=== PATIENT | female | born 1980 ===

== ENCOUNTER 2021-08-07 04:39 | Inpatient (IN) | payer SELFPAY ==
[2021-08-07] MEDS ORDERED: LACTATED RINGERS 1,000 ML ONE (07:03)
--- NOTE | 2021-08-07 07:06 | Ultrasound Report ---
US OB follow up INDICATION / CLINICAL INFORMATION: AVIVA, EFW COMPARISON: None available. TECHNIQUE: Using a transcutaneous probe, multiple grayscale, color Doppler, and spectral Doppler imag es of the uterus and fetus were captured and stored. FINDINGS: A single cephalic fetus with heart rate of 134 bpm is demonstrated. The amniotic fluid is adequate and a mild with amniotic fluid index within normal limits measuring 11 .6 cm. Biparietal Diameter = 9.7 cm = 39, 5 weeks, days Head Circumference = 35.1 cm = 40, 6 weeks, days Abdominal Circumference = 33.8 cm = 37, 5 weeks, days Femur Length = 7.2 cm = 36, 4 weeks, days Average Ultrasound Age (AUA) = 38, 5 weeks, days. EDC 08/16/2021. The clinical estimated gestational age based on LMP of 10/26/2020 is 40 weeks 5 days. Estimated weight = 3388 g; growth percentile 23%.. IMPRESSION: 1. Single living fetus with estimated gestational age of 38 weeks 5 days, estimated weight of 3 388 g. Normal AVIVA. Signer Name: Da Barr II, MD Signed: 08/07/2021 7:02 AM Workstation Name: [id number]
[2021-08-07] MEDS ORDERED: miSOPROStol 200 MCG TAB PR PRN (07:35)
[2021-08-07] MEDS ORDERED: LOPERAMIDE 2 MG CAP PO PRN (07:35)
[2021-08-07 07:57] LABS: Hematocrit 40.5 % (30.3-42.9); Hemoglobin 13.7 gm/dl (10.1-14.3); Mean Corpuscular HGB Conc 34 % (30-34); Mean Corpuscular Volume 93 fl (79-97); Platelet Count 202 K/mm3 (140-440); Red Blood Count 4.35 M/mm3 (3.65-5.03); Red Cell Distribution Width 14.5 % (13.2-15.2)
[2021-08-07] MEDS ORDERED: ePHEDrine SULFATE 50 MG/1 ML INJ IV PRN ×2 (08:00→16:00)
[2021-08-07] MEDS ORDERED: OXYTOCIN DRIP 30 UNITS/500 ML BAG IV SCH ×3 (08:00→16:00)
[2021-08-07] MEDS ORDERED: CARBOPROST TROMETHAMINE 250 MCG/1 ML INJ IM PRN (08:00)
[2021-08-07] MEDS ORDERED: LIDOCAINE (2%) 20 MG/1 ML VIAL 20 ML MDV INFILTRATI SCH (08:00)
[2021-08-07 08:10] LABS: Amphetamine Screen,Urine Negative; Benzodiazepines Screen,Urine Negative; Cannabinoid Screen,Urine Negative; Cocaine Screen,Urine Negative; Methadone Screen,Urine Negative; Opiate Screen,Urine Negative
[2021-08-07 08:12] LABS: Bacteria,Urine 2+ /HPF (Negative); Bilirubin,Urine NEG (Negative); Blood,Urine MOD (Negative); Color,Urine Yellow (Yellow); Mucus,Urine 1+ /HPF; Protein,Urine <15 mg/dL mg/dL (Negative); Urobilinogen,Urine < 2.0 mg/dL (<2.0)
[2021-08-07] MEDS ORDERED: ACETAMINOPHEN 325 MG TAB PO PRN (08:30)
[2021-08-07] MEDS ORDERED: fentaNYL 100 MCG/2 ML INJ IV PRN (08:30)
[2021-08-07] MEDS ORDERED: TERBUTALINE 1 MG/1 ML INJ SUB-Q PRN (08:30)
[2021-08-07] MEDS ORDERED: MINERAL OIL 30 ML ORAL LIQD PO PRN (08:30)
[2021-08-07] MEDS ORDERED: BUTORPHANOL 2 MG/1 ML INJ IV PRN (08:30)
--- NOTE | 2021-08-07 08:35 | History and Physical Report ---
History of Present Illness Date of examination: 08/07/21 Date of admission: 08/07/2021 Chief complaint: Contractions History of present illness: 41-year-old at 40-5/7 weeks gestation presents to OB triage reporting contractions. The contractions are every 2 to 4 minutes, and they are not necessarily regular. There is no leaking of fluid. There is good movement. There is some mild spotting. In OB triage, cervical exam was 2 cm dilated. OB ultrasound limited was normal. As this patient is past her due date, carries the diagnosis of advanced maternal age, and is clearly greater than 39 weeks gestation, induction of labor was recommended. The patient is admitted to labor and delivery for induction of labor. Past History Past Medical History: no pertinent history Past Surgical History: no surgical history Family/Genetic History: hypertension Social history: no significant social history - Obstetrical History Expected Date of Delivery: 08/02/21 Actual Gestation: 40 Week(s) 5 Day(s) : 2 Para: 1 Hx # Term Pregnancies: 1 Medications and Allergies Allergies Allergy/AdvReac Type Severity Reaction Status Date / Time No Known Allergies Allergy Unverified 08/07/21 05:21 Home Medications Medication Instructions Recorded Confirmed Last Taken Type Vitamin 1 tab PO DAILY 08/07/21 08/07/21 07/31/21 History Active Meds: Active Medications Acetaminophen (Acetaminophen 325 Mg Tab) 650 mg PO Q4H PRN PRN Reason: Pain, Mild (1-3) Butorphanol Tartrate (Butorphanol 2 Mg/1 Ml Inj) 1 mg IV Q2H PRN PRN Reason: Pain, Moderate(4-6) LABOR PAIN Carboprost Tromethamine (Carboprost Tromethamine 250 Mcg/1 Ml Inj) 250 mcg IM ONCE PRN PRN Reason: Uterine Bleeding Ephedrine Sulfate (Ephedrine Sulfate 50 Mg/1 Ml Inj) 10 mg IV Q2M PRN PRN Reason: Hypotension Fentanyl (Fentanyl 100 Mcg/2 Ml Inj) 100 mcg IV Q2H PRN PRN Reason: Pain,Severe (7-10) LABOR PAIN Oxytocin/Sodium Chloride (Pitocin/Ns 30 Unit/500ml) 30 units in 500 mls @ 2 mls/hr IV TITR KALEN; Protocol Lactated Ringer's (Lactated Ringers) 1,000 mls @ 125 mls/hr IV DIRECT KALEN Oxytocin/Sodium Chloride (Pitocin/Ns 30 Unit/500ml) 30 units in 500 mls @ 40 mls/hr IV TITR KALEN; Protocol Lidocaine (Lidocaine (2%) 20 Mg/1 Ml Vial 20 Ml Mdv) 20 ml INFILTRATI ONCE@0800 [facility] Stop: 08/08/21 07:59 Loperamide HCl (Loperamide 2 Mg Cap) 2 mg PO ONCE PRN PRN Reason: give with Hemabate Methylergonovine Maleate (Methylergonovine Maleate 0.2 Mg/Ml Vial) 0.2 mg IM ONCE PRN PRN Reason: Uterine Bleeding Mineral Oil (Mineral Oil 30 Ml Oral Liqd) 30 ml PO QHS PRN PRN Reason: Constipation Misoprostol (Misoprostol 200 Mcg Tab) 800 mcg ND ONCE PRN PRN Reason: Uterine Bleeding Misoprostol (Misoprostol 25 Mcg Tab) 25 mcg PO Q4H [facility] Stop: 08/07/21 08:01 Oxytocin (Oxytocin 10 Unit/1 Ml Inj) 10 unit IM ONCE PRN PRN Reason: Uterine Bleeding Terbutaline Sulfate (Terbutaline 1 Mg/1 Ml Inj) 0.25 mg SUB-Q ONCE PRN PRN Reason: Hyperstimulation/Hypertonicity Review of Systems All systems: negative - Vital Signs Vital signs: Vital Signs Pulse Pulse Ox 99 H 99 08/07/21 05:03 08/07/21 05:03 Temp Pulse Resp BP Pulse Ox 97.9 F 88 136/76 96 08/07/21 05:05 08/07/21 08:31 08/07/21 08:02 08/07/21 08:31 - Physical Exam Breasts: Positive: normal Cardiovascular: Regular rate Lungs: Positive: Normal air movement Abdomen: Positive: normal appearance, soft, normal bowel sounds Genitourinary (Female): Positive: normal external genitalia, normal perenium Vulva: both: normal Vagina: Positive: normal moisture Uterus: Positive: enlarged Adnexa: both: normal Anus/Rectum: Positive: normal perianal skin Extremities: Positive: normal Deep Tendon Reflex Grade: Normal +2 - Obstetrical FHR: category 1 Uterine Contraction Monitor Mode: External Cervical Dilatation: 2 Cervical Effacement Percentage: 60 station: -2 Uterine Contraction Frequency (min): 4 Uterine Contraction Pattern: Irregular Results Result Diagrams: 08/07/21 07:15 Abnormal lab results 08/07/21 Range/Units Unknown U Epithel Cells (Auto) 32.0 H (0-13.0) /HPF All other labs normal. Ultrasound: report reviewed, image reviewed (OB ultrasound Limited= SLIUP. Vertex. Fundal placenta. EFW= 3388 g (23rd %-ile). AVIVA= 11.6 cm.) Assessment and Plan - Patient Problems (1) 40 weeks gestation of Current Visit: Yes Status: Acute Plan to address problem: care is up-to-date. 1 hour glucose tolerance test is normal. She is GBS negative. (2) Postmaturity , 40-42 weeks gestation Current Visit: Yes Status: Acute Plan to address problem: The patient is past her due date. Induction of labor is recommended. (3) Encounter for induction of labor Current Visit: Yes Status: Acute Plan to address problem: Ripen cervix with oral Cytotec. Start Pitocin and artificially rupture membranes after 4 cm dilation and when possible. (4) Obesity affecting in third trimester, antepartum Current Visit: Yes Status: Acute Plan to address problem: BMI 33.8. Advise diet and exercise . (5) AMA (advanced maternal age) multigravida 35+ Current Visit: Yes Status: Acute Plan to address problem: The patient was seen by maternal- medicine.
[2021-08-07] MEDS ORDERED: OXYTOCIN 10 UNIT/1 ML INJ IM PRN (09:00)
[2021-08-07] MEDS ORDERED: METHYLERGONOVINE MALEATE 0.2 MG/ML VIAL IM PRN (09:00)
[2021-08-07] MEDS ORDERED: miSOPROStol 25 MCG TAB PO SCH (10:00)
[2021-08-07] MEDS: LACTATED RINGERS 1,000 ML IV SCH ×3 (11:09→20:10)
[2021-08-07] MEDS ORDERED: MINERAL OIL 30 ML ORAL LIQD ONE ×2 (14:45→21:24)
--- NOTE | 2021-08-07 14:51 | Anesthesia Consultation ---
Anesthesia Consult and Med Hx Date of service: 08/07/21 - Airway Anesthetic Teeth Evaluation: Good ROM Head & Neck: Adequate Mental/Hyoid Distance: Adequate Mallampati Class: Class II Intubation Access Assessment: Good - Pulmonary Exam CTA: Yes - Cardiac Exam Cardiac Exam: RRR - Pre-Operative Health Status ASA Pre-Surgery Classification: ASA2 Proposed Anesthetic Plan: Epidural - Pulmonary Hx Asthma: No COPD: No Hx Pneumonia: No - Cardiovascular System Hx Hypertension: No - Central Nervous System Hx Seizures: No Hx Psychiatric Problems: No - Endocrine Hx Renal Disease: No Hx End Stage Renal Disease: No Hx Hypothyroidism: No Hx Hyperthyroidism: No - Hematic Hx Anemia: No Hx Sickle Cell Disease: No - Other Systems Hx Alcohol Use: No
[2021-08-07] MEDS ORDERED: fentaNYL-BUPIV 2 MCG/ML-0.125% 200 MCG/100 ML BAG EPIDURAL SCH (15:00)
[2021-08-07] MEDS ORDERED: NALOXONE 0.4 MG/1 ML INJ IV PRN (15:00)
--- NOTE | 2021-08-07 15:46 | Progress Note ---
Labor Epidural - Labor Epidural Start Time: 15:22 Stop Time: 15:26 Performed by:: ANA CHENG Procedure: Patient is requesting epidural for labor and pain. H&P, labs were reviewed. Patient IDed, all questions and concerns were answered, and consent was signed. Timeout was performed at bedside. Patient in sitting position. Sterile prep and drape was performed. 3ml of 1% lidocaine skin wheal at L[3]- L [4]. 17- gauge Tuohy epidural needle was advanced to loss of resistance with air technique cm. Negative CSF negative blood. Epidural catheter advanced to [] centimeters. [negative] Aspiration [negative] test dose. Sterile dressing applied. Patient tolerated procedure.
--- NOTE | 2021-08-07 16:39 | Event Note ---
Date: 08/07/21 (899) AMA presented in labor Cat 1 tracing, cx Q1-2min w/o meds, Ve -3 posterior. Desires epidural. GBS neg.
--- NOTE | 2021-08-07 18:27 | Event Note ---
Date: 08/07/21 (1710) Evalutated patient at 1710.She has been epiduralized, currently with infante cath, IUPC and pitocin at 4mu. cat 1 tracing.
--- NOTE | 2021-08-07 19:25 | Event Note ---
Date: 08/07/21 pt evaluated and comfortable with epidural. FHR category I, inadequate ctx. Need to increase pitocin per protocol. Pelvic with anterior cervix swollen. Pt in high fowlers position. Expect
--- NOTE | 2021-08-07 23:00 | Event Note ---
Date: 08/07/21 pt complete with O-P presentation, placed in right lateral position, head at 0 station. IV pitocin at 4mu/min still inadequate but frequent contractions. Pt remains with epidural and the dose halfed. Pt notified of my exam and will await vaginal delivery.
[2021-08-08] MEDS ORDERED: LANOLIN/ZINC/DIMETHICONE (LANSINOH) 7 GM TP PRN (00:57)
[2021-08-08] MEDS ORDERED: BENZOCAINE/MENTHOL 20/0.5% TOP SPRAY 56 GM TP PRN (00:57)
[2021-08-08] MEDS ORDERED: ACETAMINOPHEN 325 MG TAB PO PRN (00:57)
[2021-08-08] MEDS ORDERED: WITCH HAZEL/ GLYCERIN PAD TP PRN (00:57)
[2021-08-08] MEDS ORDERED: HYDROcodone/ACETAMINOPHEN 5-325 MG TAB PO PRN (00:57)
[2021-08-08] MEDS ORDERED: MAGNESIUM HYDROXIDE (MOM) ORAL LIQD UDC PO PRN (00:57)
--- NOTE | 2021-08-08 01:08 | Procedure Note ---
OB Delivery Note - Delivery Date of Delivery: 08/08/21 Surgeon: MARGARITO GRAHAM Computer [employer] Instructor: PAUL CORREA Estimated blood loss: other (350 cc) - Vaginal Delivery presentation: vertex Delivery position: OA Intrapartum events: other(please specify) (AMA) Delivery induction: misoprostol Delivery augmentation: rupture of membranes, pitocin Delivery monitor: external FHT, external uterine, internal FHT, internal uterine Route of delivery: Delivery placenta: spontaneous Delivery cord: nuchal cord (x2), 3 umbilical vessels Episiotomy: none Delivery laceration: 1st degree Delivery repair: vicryl Anesthesia: epidural Delivery comments: Patient achieved complete cervical dilation. Fetus was occiput anterior position based on bedside sonogram performed by me. Patient felt the urge to push. After 2 pushes with contractions, the patient produced the head. Nuchal cord x2 were noted and were easily reduced manually. The remainder of the infant was delivered atraumatically. Mouth and nose were bulb suctioned. The cord was clamped and cut. Cord blood was obtained. The placenta was spontaneously expelled. First-degree perineal laceration was repaired with 2-0 Vicryl in a running locked fashion to produce excellent hemostasis. There were no instruments, laparotomy sponges, or 4 x 4's left within the patient's vagina. This was confirmed with a vaginal sweep. The patient tolerated the procedure well. - A at 1 minute: 8 at 5 minutes: 9 Gender: Male
[2021-08-08] MEDS ORDERED: MINERAL OIL 30 ML ORAL LIQD PO ONE (01:28)
[2021-08-08] MEDS: IBUPROFEN 800 MG TAB PO SCH ×3 (03:47→23:31)
[2021-08-08] MEDS: DOCUSATE SODIUM 100 MG CAP PO SCH ×2 (10:41→21:44)
[2021-08-08] MEDS ORDERED: FLUCONAZOLE 100 MG TAB PO SCH (13:00)
[2021-08-08 17:42] LABS: Hematocrit 40.7 % (30.3-42.9); Hemoglobin 13.3 gm/dl (10.1-14.3); Mean Corpuscular HGB Conc 33 % (30-34); Mean Corpuscular Volume 93 fl (79-97); Platelet Count 176 K/mm3 (140-440); Red Blood Count 4.36 M/mm3 (3.65-5.03); Red Cell Distribution Width 14.8 % (13.2-15.2)
[2021-08-09] MEDS: IBUPROFEN 800 MG TAB PO SCH (05:48)
--- NOTE | 2021-08-09 09:11 | Progress Note ---
Assessment and Plan A: PPD # 1 - stable P: Discharge home today Discharge instructions given Subjective - Subjective Date of service: 08/09/21 Principal diagnosis: PPD # 1 Patient reports: appetite normal [place]: doing well Objective - Vital Signs Latest vital signs: Vital Signs Temp Pulse Resp BP Pulse Ox Pulse Ox 08/09/21 05:48 18 08/09/21 01:03 97.9 F 84 20 117/79 99 08/08/21 23:31 20 08/08/21 20:05 99 08/08/21 15:46 97.7 F 94 H 20 105/65 100 08/08/21 12:07 98.1 F 97 H 16 113/70 99 Intake and Output 08/08/21 08/09/21 08/09/21 22:59 06:59 14:59 Intake Total 240 600 Balance 240 600 Intake: Oral 240 240 Intake, Free Water 360 Other: Total, Intake Amount 240 240 # Voids Void 1 1 - Exam Breasts: Present: deferred Cardiovascular: Present: Regular rate Abdomen: Present: normal appearance Vulva: both: normal Uterus: Present: fundal height below umbilicus Deep Tendon Reflex Grade: Normal +2 - Labs Labs: Abnormal lab results 08/08/21 Range/Units 17:02 WBC 19.4 H (4.5-11.0) K/mm3
--- NOTE | 2021-08-09 09:11 | Discharge Summary ---
Providers - Providers Date of Admission: 08/07/21 07:36 Date of discharge: 08/09/21 Attending physician: VITALIY HUTCHINSON 08/08/21 16:07 psychiatry consult [Consult to Mental Health] [CONS] Routine Reason For Exam: [place] score of 11 Primary care physician: VTIALIY HUTCHINSON Hospitalization Reason for admission: active labor Delivery: Laceration: 1st degree Other procedures: none complications: none [place] baby: male Condition at discharge: Good Disposition: 01 HOME / SELF CARE / HOMELESS Plan - Provider Discharge Summary Activity: no sex for 6 weeks Diet: routine Instructions: routine Additional instructions: [] Smoking cessation referral if applicable(refer to patient education folder for contact #) [] Refer to [facility]'s [facility] Booklet Call your doctor immediately for: * Fever > 100.5 * Heavy vaginal bleeding ( >1 pad per hour) * Severe persistent headache * Shortness of breath * Reddened, hot, painful area to leg or breast * Drainage or odor from incision. * Keep incision clean and dry at all times and follow doctor's instructions regarding bathing/showering - Follow up plan Follow up: VITALIY HUTCHINSON MD [Primary Care Provider] - 6 Weeks
[2021-08-09] MEDS: DOCUSATE SODIUM 100 MG CAP PO SCH (10:18)
--- NOTE | 2021-08-09 13:12 | Consultation ---
History of Present Illness - Reason for Consult Consult date: 08/09/21 Reason for consult: High Score on EDS - Chief Complaint Chief complaint: Contractions - History of Present Psychiatric Illness Patient seen with spouse at bedside. Patient describes a good and stable mood, denies being depressed or excessively nervous. Patient eats and sleeps well. Patient denies panic attacks, recurrent nightmares or flashbacks. Patient denies symptoms suggestive of OCD or PTSD. Patient denies hallucinations, paranoia, thought interference and no features suggestive of hypomania or gorge. She completely denies suicidal or homicidal thoughts. PAST PSYCHIATRIC HISTORY: Patient denies Family Psychiatric History None reported or documented SOCIAL HISTORY Marital Status: Living Arrangements: with spouse Access to guns/weapons: No ROS: Constitutional: Negative for weight loss ENT: Negative for stridor Respiratory: Negative for cough or hemoptysis All other systems reviewed and are negative MENTAL STATUS General Appearance and Behavior: age appropriate, good eye contact, cooperative with questioning and polite Cooperation: Cooperative Psychomotor Behavior: within normal limits Mood: OK Affect and affective range: Congruent with stated mood Thought Process: Fluent/Logical and Goal-directed Thought Content: Within reality Speech: Normal volume and Regular rate and rhythm Intellectual Functioning Average Suicidal Ideation: Denies SI Homicidal Ideation: Denies HI Impulse Control: intact Insight and Judgment: normal insight and judgment Memory: Normal Attention: Normal Orientation: alert and oriented RECOMMENDATIONS DISPOSITION: Per primary team, no indication for acute inpatient psychiatric hospitalization at this time Please contact with any questions and/or concerns. Medications and Allergies Allergies Allergy/AdvReac Type Severity Reaction Status Date / Time No Known Allergies Allergy Unverified 08/07/21 05:21 Home Medications Medication Instructions Recorded Confirmed Last Taken Type Vitamin 1 tab PO DAILY 08/07/21 08/07/21 07/31/21 History Active Meds: Active Medications Acetaminophen (Acetaminophen 325 Mg Tab) 650 mg PO Q4H PRN PRN Reason: Pain MILD(1-3)/Fever >100.5/HAYNES Hydrocodone Bitart/Acetaminophen (Hydrocodone/Acetaminophen 5-325 Mg Tab) 2 each PO Q6H PRN PRN Reason: Pain, Moderate (4-6) Benzocaine/Menthol (Benzocaine/Menthol 20/0.5% [place] 56 Gm) 1 spray TP PRN PRN PRN Reason: Episiotomy Pain Last Admin: 08/08/21 03:47 Dose: 1 spray Docusate Sodium (Docusate Sodium 100 Mg Cap) 100 mg PO BID KALEN Last Admin: 08/08/21 21:44 Dose: 100 mg Ibuprofen (Ibuprofen 800 Mg Tab) 800 mg PO Q6HR KALEN Last Admin: 08/09/21 05:48 Dose: 800 mg Magnesium Hydroxide (Magnesium Hydroxide (Mom) Oral Liqd Udc) 30 ml PO HS PRN PRN Reason: Constipation Multi-Ingredient Ointment (Lanolin/Zinc/Dimethicone (Lansinoh) 7 Gm) 1 applic TP PRN PRN PRN Reason: Sore Nipples Witch Shreya/Glycerin (Witch Shreya/ Glycerin Pad) 1 each TP PRN PRN PRN Reason: Hemorrhoid/cleansing/soothing Last Admin: 08/08/21 03:55 Dose: 1 each Mental Status Exam - Vital signs Last Vital Signs Temp 97.7 F 08/09/21 08:25 Pulse 89 08/09/21 08:25 Resp 18 08/09/21 08:25 BP 117/66 08/09/21 08:25 Pulse Ox 98 08/09/21 10:00 Results Result Diagrams: 08/08/21 17:02 Abnormal lab results 08/08/21 Range/Units 17:02 WBC 19.4 H (4.5-11.0) K/mm3 All other labs normal.
[2021-08-09 13:55] VITALS: BP 126/77
== END 2021-08-09 13:40 | disposition home or self-care (01) | DRG 807 ==
LOC: TRG 04:39 → APU 04:41 → LD 07:36 → TRG 09:05 → OB 08-08 03:37
PROVIDERS: ADMIT Obstetrics & Gynecology; ATTEND Obstetrics & Gynecology
PROC: 10E0XZZ Delivery of Products of Conception, External Approach (ICD-10-PCS; principal; 2021-08-08)
PROC: 0HQ9XZZ Repair Perineum Skin, External Approach (ICD-10-PCS; 2021-08-08)
PROC: 3E0R3BZ Introduction of Anesthetic Agent into Spinal Canal, Percutaneous Approach (ICD-10-PCS; 2021-08-08)
PROC: 00HU33Z Insertion of Infusion Device into Spinal Canal, Percutaneous Approach (ICD-10-PCS; 2021-08-08)
DX: O69.81X0 Labor and delivery complicated by cord around neck, without compression, not applicable or unspecified (principal); Z37.0 Single live birth; O48.0 Post-term pregnancy; Z20.822 Contact with and (suspected) exposure to COVID-19; O99.214 Obesity complicating childbirth; Z3A.40 40 weeks gestation of pregnancy; O70.0 First degree perineal laceration during delivery
CPT/HCPCS: 36415; 76816; 80307; 81001; 85027; 86592; 86850; 86900; 86901; G0378; J3490; J2590; J3010; J7120; U0003